=== PATIENT | male | born 1995 | race Caucasian/White ===

== ENCOUNTER 2016-07-31 21:14 | Emergency (ER) | payer OTHER ==
--- NOTE | 2016-07-31 21:45 | EDM.PDOC ---
ED HPI GENERAL MEDICAL PROBLEM - General Chief Complaint: General Stated Complaint: SWOLLEN JAW Time Seen by Provider: 07/31/16 21:30 Source of Information: Reports: Patient History Limitations: Reports: No limitations - History of Present Illness INITIAL COMMENTS - FREE TEXT/NARRATIVE: History of present illness: [20-year-old male comes in with lower gum swelling. Indicates he's been the dentist and had a tooth extraction above this tooth but that he didn't think he should have an infection after having just recently been seen by the dentist gum is swollen and painful with good blanching.] Review of systems: As per history of present illness and below otherwise all systems reviewed and negative. Past medical history: As per history of present illness and as reviewed below otherwise noncontributory. Surgical history: As per history of present illness and as reviewed below otherwise noncontributory. Social history: No reported history of drug or alcohol abuse. Family history: As per history of present illness and as reviewed below otherwise noncontributory. Physical exam: HEENT: Atraumatic, normocephalic, pupils reactive, negative for conjunctival pallor or scleral icterus, mucous membranes moist, throat clear, neck supple, nontender, trachea midline. Lungs: Clear to auscultation, breath sounds equal bilaterally, chest nontender. Heart: S1S2, regular, negative for clicks, rubs, or JVD. Abdomen: Soft, nondistended, nontender. Negative for masses or hepatosplenomegaly. Negative for costovertebral tenderness. Pelvis: Stable nontender. Genitourinary: Deferred. Rectal: Deferred. Extremities: Atraumatic, negative for cords or calf pain. Neurovascular unremarkable. Neuro: Awake, alert, oriented. Cranial nerves II through XII unremarkable. Cerebellum unremarkable. Motor and sensory unremarkable throughout. Exam nonfocal. Diagnostics: [] Therapeutics: [] Impression: [Dental abcess] Plan: [Anabiotic, pain meds] Definitive disposition and diagnosis as appropriate pending reevaluation and review of above. left lower jaw Pain Score (Numeric/FACES): 5 - Related Data Allergies Allergy/AdvReac Type Severity Reaction Status Date / Time No Known Allergies Allergy Verified 07/31/16 21:25 Home Meds: Home Meds . [No Known Home Meds] 05/10/16 [History] Past Medical History - Past Health History Medical/Surgical History: Denies Medical/Surgical History Cardiovascular History: Reports: None Respiratory History: Reports: None Gastrointestinal History: Reports: None Genitourinary History: Reports: None Musculoskeletal History: Reports: None Neurological History: Reports: None Psychiatric History: Reports: None Endocrine/Metabolic History: Reports: None Dermatologic History: Reports: None - Infectious Disease History Infectious Disease History: Reports: Chicken pox - Past Surgical History HEENT Surgical History: Reports: Tonsillectomy Male Surgical History: Reports: None Social & Family History - Family History Family Medical History: Noncontributory - Tobacco Use Smoking Status *Q: Never Smoker Second Hand Smoke Exposure: No - Caffeine Use Caffeine Use: Reports: Soda Caffeine Use Comment: 1/day - Recreational Drug Use Recreational Drug Use: No ED ROS GENERAL - Review of Systems Review Of Systems: See Below (The history of present illness) ED EXAM, GENERAL - Physical Exam Exam: See Below (See history of present illness) Course - Vital Signs Last Recorded V/S: Last Vital Signs Temp 36.9 C 07/31/16 21:27 Pulse 78 07/31/16 21:27 Resp 16 07/31/16 21:27 BP 133/73 07/31/16 21:27 Pulse Ox 99 07/31/16 21:27 Departure - Departure Time of Disposition: 21:44 Disposition: Home, Self-Care 01 Condition: good Clinical Impression: Dental abscess Forms: ED Department Discharge Additional Instructions: The following information is given to patients seen in the emergency department who are being discharged to home. This information is to outline your options for follow-up care. We provide all patients seen in our emergency department with a follow-up referral. The need for follow-up, as well as the timing and circumstances, are variable depending upon the specifics of your emergency department visit. If you don't have a primary care physician on staff, we will provide you with a referral. We always advise you to contact your personal physician following an emergency department visit to inform them of the circumstance of the visit and for follow-up with them and/or the need for any referrals to a consulting specialist. The emergency department will also refer you to a specialist when appropriate. This referral assures that you have the opportunity for follow-up care with a specialist. All of these measure are taken in an effort to provide you with optimal care, which includes your follow-up. Under all circumstances we always encourage you to contact your private physician who remains a resource for coordinating your care. When calling for follow-up care, please make the office aware that this follow-up is from your recent emergency room visit. If for any reason you are refused follow-up, please contact the [facility] Emergency Department at and asked to speak to the emergency department charge nurse. Take medication as directed Followup with a new dentist as instructed Turned ED as needed as discussed
[2016-07-31 22:04] VITALS: BP 130/70
== END 2016-07-31 22:00 | disposition home or self-care (01) ==
LOC: MW.ED 21:14
DX: K04.7 Periapical abscess without sinus (principal); Z98.890 Other specified postprocedural states
CPT/HCPCS: 99282; 99283

== ENCOUNTER 2018-05-12 14:11 | Emergency (ER) | payer OTHER ==
[2018-05-12] MEDS ORDERED: Sodium Chloride 0.9% 10 ML Syringe FLUSH PRN (14:15)
[2018-05-12] MEDS ORDERED: Sodium Chloride 0.9% 2.5 ML Syringe FLUSH PRN (14:15)
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
--- NOTE | 2018-05-12 14:39 | CR ---
HISTORY: Right-sided weakness. Stroke code. TECHNIQUE: One view of the chest. COMPARISON: No prior. FINDINGS: Cardiac size is within normal limits accounting for technique. There is no lung infiltrate or pulmonary edema. No pneumothorax. No moderate or large pleural effusion. IMPRESSION: No acute disease. Dictated by Derick Mora MD @ 05/12/2018 2:37:19 PM Dictated by: Derick Mora MD @ 05/12/2018 14:37:24 (Electronically Signed)
--- NOTE | 2018-05-12 14:41 | CT ---
HISTORY: Numbness and tingling involving the right-sided face and arm. TECHNIQUE: Noncontrast head CT. COMPARISON: No prior. FINDINGS: There is no acute ischemic infarct or acute intracranial hemorrhage. No mass effect or midline shift. No hydrocephalus. No extra-axial collection or hematoma. No acute loss of enrique-white differentiation. Mastoid air cells are clear. Paranasal sinuses are clear. No skull fracture. IMPRESSION: No acute intracranial disease. Please note that all CT scans at this facility use dose modulation, iterative reconstruction, and/or weight-based dosing when appropriate to reduce radiation dose to as low as reasonably achievable. Dictated by Derick Mora MD @ May 12 2018 2:37PM Signed by Dr. Derick Mora @ May 12 2018 2:40PM
[2018-05-12] MEDS ORDERED: Aspirin 325 MG Tab PO ONE (14:49)
[2018-05-12] MEDS ORDERED: Acetaminophen/HYDROcodone 325-5 MG Tab PO ONE (15:00)
[2018-05-12 15:36] LABS: CHLORIDE,CL 104 mmol/L (98-107); SODIUM,NA 140 mmol/L (136-148)
[2018-05-12 15:44] VITALS: BP 138/78
== END 2018-05-12 15:40 ==
LOC: MW.ED 14:11
DX: R29.818 Other symptoms and signs involving the nervous system (principal); R40.2410 Glasgow coma scale score 13-15, unspecified time
CPT/HCPCS: 36415; 70450; 71045; 80053; 84443; 84484; 85025; 85610; 85730; 93005; 99285; A9270

== ENCOUNTER 2020-05-09 13:04 | Emergency (ER) | payer BC ==
[2020-05-09 13:13] VITALS: BP 135/76; PULSE 67
--- NOTE | 2020-05-09 13:15 | EDM.PDOC ---
ED HPI GENERAL MEDICAL PROBLEM - General Chief Complaint: Back Pain or Injury Stated Complaint: possible pinched nerve Time Seen by Provider: 05/09/20 13:13 Source of Information: Reports: Patient History Limitations: Reports: No Limitations - History of Present Illness INITIAL COMMENTS - FREE TEXT/NARRATIVE: 24-year-old male presents for low back pain radiating down right leg x1 week. Patient denies any known history of trauma or overuse. Patient notes that pain is worse with use, certain positions, walking. Is mildly better with rest. He denies any urinary incontinence or retention. No fevers. No lower extremity muscle weakness. Lower Back Pain Score (Numeric/FACES): 7 - Related Data Allergies Allergy/AdvReac Type Severity Reaction Status Date / Time No Known Allergies Allergy Verified 05/09/20 13:11 Home Meds: Home Meds Ibuprofen [Motrin] 600 mg PO Q6H PRN #30 tab 05/09/20 [Rx] diazePAM [Valium.] 5 mg PO TID PRN #9 tab 05/09/20 [Rx] Past Medical History - Past Health History Medical/Surgical History: Denies Medical/Surgical History Cardiovascular History: Reports: None Respiratory History: Reports: None Gastrointestinal History: Reports: None Genitourinary History: Reports: None Musculoskeletal History: Reports: None Neurological History: Reports: None Psychiatric History: Reports: None Endocrine/Metabolic History: Reports: None Dermatologic History: Reports: None - Infectious Disease History Infectious Disease History: Reports: Chicken Pox - Past Surgical History HEENT Surgical History: Reports: Tonsillectomy Male Surgical History: Reports: None Social & Family History - Family History Family Medical History: No Pertinent Family History - Tobacco Use Tobacco Use Status *Q: Never Tobacco User - Caffeine Use Caffeine Use: Reports: None Caffeine Use Comment: 1/day - Recreational Drug Use Recreational Drug Use: No ED ROS GENERAL - Review of Systems Review Of Systems: Comprehensive ROS is negative, except as noted in HPI. ED EXAM, GENERAL - Physical Exam Exam: See Below Exam Limited By: No Limitations General Appearance: Alert, WD/WN, No Apparent Distress Throat/Mouth: Normal Voice, No Airway Compromise Head: Atraumatic, Normocephalic Neck: Normal Inspection, Non-Tender Respiratory/Chest: No Respiratory Distress, Lungs Clear, Normal Breath Sounds, No Accessory Muscle Use Cardiovascular: Normal Peripheral Pulses, Regular Rate, Rhythm Back Exam: Normal Inspection, Full Range of Motion. No: Vertebral Tenderness Extremities: Normal Inspection Neurological: Alert, Normal Cognition, Normal Gait Psychiatric: Normal Affect, Normal Mood Skin Exam: Warm, Dry, Intact, Normal Color Course - Vital Signs Last Recorded V/S: Last Vital Signs Temp 96.5 F L 05/09/20 13:11 Pulse 67 05/09/20 13:11 Resp 16 05/09/20 13:11 BP 135/76 05/09/20 13:11 Pulse Ox 96 05/09/20 13:11 - Orders/Labs/Meds Meds: Medications Discontinued Medications Generic Name Dose Route Start Last Admin Trade Name Freq PRN Reason Stop Dose Admin Dexamethasone 10 mg 05/09/20 13:19 Decadron IM 05/09/20 13:20 ONETIME ONE Ketorolac Tromethamine 30 mg 05/09/20 13:19 Toradol IM 05/09/20 13:20 ONETIME ONE - Re-Assessments/Exams Free Text/Narrative Re-Assessment/Exam: 05/09/20 13:21 Patient presents with history and physical consistent with sciatica. Will give Decadron, Toradol for anti-inflammatory and analgesia. Patient is driving so will defer muscle relaxants but will send home with prescription. Spoke with patient about primary care physician follow-up for MRI imaging as needed. Return precautions were discussed. Departure - Departure Time of Disposition: 13:22 Disposition: Home, Self-Care 01 Condition: Good Clinical Impression: Sciatica Qualifiers: Laterality: right Qualified Code(s): M54.31 - Sciatica, right side - Discharge Information Prescriptions: Ibuprofen [Motrin] 600 mg PO Q6H PRN #30 tab PRN Reason: Pain Instructions: Sciatica, [id number] Referrals: Blane Toney MD [Primary Care Provider] - Forms: ED Department Discharge Additional Instructions: Your symptoms are consistent with a condition called sciatica. Information is provided for sciatica in your discharge instructions. I have prescribed you 2 different medications. One is called Motrin which is a high-dose version of the [id number] medication. You can use this every 6 hours for pain. I would recommend using it every 6 hours for the first 2 or 3 days to also help with inflammation. The other medication is called Valium which is a strong muscle relaxant. This can make you drowsy so you should not drink alcohol or drive on this medication. You were given a long-acting steroid that stays in your body for several days called Decadron in the emergency department. This is a potent anti-inflammatory. If symptoms recur, you are encouraged to follow-up with a primary care physician for MRI imaging of the back to get a definitive diagnosis of why you are having sciatica. If you do not have a primary care physician, information is provided below. If you develop urinary incontinence or retention, pain not well controlled at home, fever, or lower extremity muscle weakness you should come back to the emergency department for reassessment as these can be signs of serious illness. The following information is given to patients seen in the emergency department who are being discharged to home. This information is to outline your options for follow-up care. We provide all patients seen in our emergency department with a follow-up referral. The need for follow-up, as well as the timing and circumstances, are variable depending upon the specifics of your emergency department visit. If you don't have a primary care physician on staff, we will provide you with a referral. We always advise you to contact your personal physician following an emergency department visit to inform them of the circumstance of the visit and for follow-up with them and/or the need for any referrals to a consulting specialist. The emergency department will also refer you to a specialist when appropriate. This referral assures that you have the opportunity for follow-up care with a specialist. All of these measure are taken in an effort to provide you with optimal care, which includes your follow-up. Under all circumstances we always encourage you to contact your private physician who remains a resource for coordinating your care. When calling for follow-up care, please make the office aware that this follow-up is from your recent emergency room visit. If for any reason you are refused follow-up, please contact the [facility] Emergency Department at and asked to speak to the emergency department charge nurse. Please follow up with your primary care physician. If you do not have a primary care physician, see below: [facility] [address] [place] [address] [id number] [facility] [address] [place], [place] [id number] [facility] [address] [place] [id number] Sepsis Event Note (ED) - Evaluation Sepsis Screening Result: No Definite Risk - Focused Exam Vital Signs: Vital Signs Temp Pulse Resp BP Pulse Ox 05/09/20 13:11 96.5 F L 67 16 135/76 96
[2020-05-09] MEDS ORDERED: Ketorolac 30 MG/ML SDV IM ONE (13:19)
[2020-05-09] MEDS ORDERED: Dexamethasone 10 MG/ML SDV IM ONE (13:19)
== END 2020-05-09 13:31 | disposition home or self-care (01) ==
LOC: MW.ED 13:04
DX: M54.41 Lumbago with sciatica, right side (principal)
CPT/HCPCS: 96372; 99283; J1100; J1885; 99282

== ENCOUNTER 2022-07-28 15:21 | Emergency (ER) | payer OTHER, BC ==
[2022-07-28 16:12] VITALS: BP 122/73; PULSE 66
== END 2022-07-28 16:09 | disposition home or self-care (01) ==
LOC: MW.ED 15:21
DX: S46.812A Strain of other muscles, fascia and tendons at shoulder and upper arm level, left arm, initial encounter (principal); S40.012A Contusion of left shoulder, initial encounter; V89.2XXA Person injured in unspecified motor-vehicle accident, traffic, initial encounter; Y92.410 Unspecified street and highway as the place of occurrence of the external cause
CPT/HCPCS: 99283

== ENCOUNTER 2022-08-09 15:31 | Emergency (ER) | payer OTHER, BC ==
[2022-08-09 18:37] VITALS: BP 123/76; PULSE 64
== END 2022-08-09 18:30 | disposition home or self-care (01) ==
LOC: MW.ED 15:31
DX: M25.512 Pain in left shoulder (principal); M54.10 Radiculopathy, site unspecified; V49.40XA Driver injured in collision with unspecified motor vehicles in traffic accident, initial encounter; Y92.410 Unspecified street and highway as the place of occurrence of the external cause
CPT/HCPCS: 72125; 72125-26; 73000-26-LT; 73000-LT; 73030-26-LT; 73030-LT; 99283; 99284